=== PATIENT | female | born 1975 | race Caucasian/White ===

== ENCOUNTER 2024-04-14 06:01 | Emergency (ER) | payer BC ==
[2024-04-14] MEDS ORDERED: Lisinopril 20 MG TAB PO SCH (06:30)
== END 2024-04-14 06:40 | disposition home or self-care (01) ==
LOC: CSHERS 06:01
DX: I10 Essential (primary) hypertension (principal); E11.9 Type 2 diabetes mellitus without complications; Z79.84 Long term (current) use of oral hypoglycemic drugs; Z79.899 Other long term (current) drug therapy
CPT/HCPCS: 99283